=== PATIENT | female | born 1995 | race Caucasian/White ===

== ENCOUNTER 2024-01-29 14:16 | Outpatient (AMB) | payer BC, SELFPAY ==
--- NOTE | 2024-01-29 14:17 | AM.OFFWIN_ITS ---
Intake Vital Signs 01/29/24 14:18 Height 5 ft 1 in Weight 289 lb BMI 54.6 BP 110/90 H Blood Pressure Location Lt brachial Position Sitting Pulse 99 Pulse Source Pulse Oximeter Temp 98.6 F Temp Source Temporal Artery Scan Pulse Oximetry (%) 97 Oxygen Delivery Method Room Air Intake Visit Reasons: EP sore throat sinus congestion (lobby) Intake Note: pt is here today for sore throat sinus congestion started yestreday Patient Tobacco Use Status: Never used Tobacco Allergies No Known Allergies Allergy (Verified 01/29/24 14:21) Do you need a note to return to daycare/school/sports/work: No HPI HPI Comments History of Present Illness Details 28 y/o female patient who presents to [facility] in clinic with c/o chills, Sinus pressure and Sore-throat that started yesterday. She has not taken any OTC medications. Denies any recent Sick contacts. PFSH Social History Patient Tobacco Use Status: Never used Tobacco Review of Systems Const All systems reviewed & are unremarkable except as noted in HPI and below Physical Exam Vital Signs: Last Vital Signs Temp 98.6 F 01/29/24 14:18 Pulse 99 01/29/24 14:18 BP 110/90 H 01/29/24 14:18 Pulse Ox 97 01/29/24 14:18 Oxygen Delivery Method Room Air 01/29/24 14:18 BMI result Body Mass Index 54.6 Const General: comfortable and no acute distress Nutritional Appearance: obese morbidly obese Orientation/consciousness: patient oriented x3 HEENT Head: Yes normocephalic Ears: external ears normal and TM's normal bilaterally General nose exam: Abnormal mucous membranes and turbinates present boggy bilateral and erythematous bilateral and Nasal discharge present mucoid Face and sinus: Yes sinus tenderness Mouth: Abnormal oral and palatal mucosa present erythematous and white patches Throat: Yes uvula midline and Yes abnormal tonsil (Swollen +3 ) Resp Effort & Inspection: normal respiratory effort and able to speak in complete sentences Auscultation: clear to auscultation bilaterally, no crackles, no rales, no rhonchi and no wheezes Cardio Rate: regular rate Rhythm: regular rhythm Neuro General: patient oriented x3, gait normal and moves all extremities Psych Speech and movement: Normal speech and movement present Results AMB Rapid Strep AMB Rapid Strep Negative Last Edit by Marisa aRzo CMA on 01/29/24 14 :30 Results Reviewed Results Reviewed: Laboratory Last Values Strep Scn Rapid Clinic Negative 01/29/24 14:30 Assessment & Plan Assessment & Plan (1) Acute pharyngitis: Code(s): J02.9 - Acute pharyngitis, unspecified Qualifiers: Pharyngitis/tonsillitis etiology: unspecified etiology Qualified Code(s): J02.9 - Acute pharyngitis, unspecified Plan: - Rest and hydrate well with warm fluids with Honey. - Acetaminophen for pain relief - SARs - Take medications as directed. Orders: Orders AMB Rapid Strep Screen Today Z13.9 - Encounter for screening, unspecified SARS-CoV2/FLU/RSV Today J02.9 - Acute pharyngitis, unspecified Medications: New penicillin V potassium 500 mg PO BID 10 days 20 tabs 0RF J02.9 - Acute pharyngitis, unspecified prednisone 20 mg PO DAILY 5 days 5 tabs 0RF J02.9 - Acute pharyngitis, unspecified acetaminophen 1,000 mg (2 x 500 mg) PO Q6H PRN 30 caps 0RF pain (scale score 7- 10) J02.9 - Acute pharyngitis, unspecified Coding Level of Care Code Est Pt Level 3 (11772) Diagnoses Acute pharyngitis, unspecified etiology J02.9 Pharyngitis/tonsillitis etiology: unspecified etiology Time Spent (min) 15
[2024-01-29 14:18] VITALS: BP 110/90; PULSE 99; TEMP 37; O2SAT 97; BMI 54.6
== END 2024-01-29 15:25 | disposition home or self-care (01) ==
PROVIDERS: PCP Nurse Practitioner Adult Health; Visit Provider Nurse Practitioner Family
DX: J02.9 Acute pharyngitis, unspecified (principal); Z13.9 Encounter for screening, unspecified
CPT/HCPCS: 87880; 99213

== ENCOUNTER 2024-01-29 14:32 | Outpatient (REF) | payer BC, SELFPAY ==
[2024-01-29 18:05] LABS: Influenza A PCR NEGATIVE (Negative); Influenza B PCR NEGATIVE (Negative); Resp Syncy Virus RNA Qual PCR NEGATIVE (Negative); SARS COV2 PCR INHOUSE NEGATIVE (Negative)
== END 2024-01-29 14:33 | disposition home or self-care (01) ==
LOC: HO.LAB 14:32
PROVIDERS: Visit Provider Nurse Practitioner Family
DX: J02.9 Acute pharyngitis, unspecified (principal)
CPT/HCPCS: 0241U

== ENCOUNTER 2025-02-19 12:48 | Emergency (ER) | payer BC, SELFPAY ==
[2025-02-19 13:03] VITALS: BP 157/94; PULSE 72; RESP 18; TEMP 36.3; O2SAT 97; BMI 54.7
--- NOTE | 2025-02-19 13:05 | ED_ITS ---
HPI - General Adult General Chief complaint: Headache Stated complaint: migraine Time Seen by Provider: 02/19/25 13:28 Source: patient and old records reviewed Mode of arrival: ambulatory Limitations: no limitations History of Present Illness ED Provider: MOE FERNANDEZ narrative: 29 yo female with PMH of migraines and family history of migraines here with c/o R sided headache starting yesterday when she woke up no no trauma or fevers. Yesterday she tried excedrin and no relief. Today she tried tylenol but vomited it up. She has no neck pain. She has no numbness or weakness. She denies any recent URI. She states she has never had to come to the hospital before for this. complaint: migraine Onset (ago): day(s) (yesterday ) Location: head Radiation: non-radiation Severity: severe Quality: aching Pain Consistency: constant Relieving factors: none Exacerbating factors: other (light, noise) Associated symptoms: nausea/vomiting Treatments prior to arrival: other Related Data Home Medications ?Medication ?Instructions ?Recorded ?Confirmed fluticasone propionate 110 2 puff inhalation BID 01/29/24 mcg/actuation HFA aerosol inhaler levalbuterol tartrate 45 2 puff inhalation Q4H 01/29/24 mcg/actuation aerosol inhaler montelukast 10 mg tablet 10 mg PO DAILY 01/29/24 sertraline 50 mg tablet 50 mg PO DAILY 01/29/24 Previous Rx's ?Medication ?Instructions ?Recorded acetaminophen 500 mg capsule 1,000 mg (2 x 500 mg) PO Q6H PRN 01/29/24 pain (scale score 7-10) #30 caps penicillin V potassium 500 mg 500 mg PO BID 10 days #20 tabs 01/29/24 tablet prednisone 20 mg tablet 20 mg PO DAILY 5 days #5 tabs 01/29/24 cyclobenzaprine 10 mg tablet 10 mg PO TID PRN muscle spasm #20 02/19/25 tabs ondansetron 4 mg disintegrating 4 mg PO Q8H PRN nausea and 02/19/25 tablet vomiting #20 tabs Allergies Allergy/AdvReac Type Severity Reaction Status Date / Time No Known Allergies Allergy Verified 02/19/25 13:07 Review of Systems Review of Systems: Constitutional : No Fever, No Chills, No Fatigue ENT/Mouth : No sore throat, No Rhinorrhea Eyes: No Eye Pain, No Swelling, No Redness Cardiovascular : No Chest Pain, No SOB, No Dyspnea on Exertion Respiratory : No Cough, No Sputum Gastrointestinal : pos Nausea, No Vomiting, No Diarrhea, No abdominal Pain Genitourinary : No Dysuria, No Urinary Frequency, No Hematuria, Musculoskeletal : No joint pain, No Myalgias, No Joint Swelling Skin : No Skin Lesions, No rash Neuro : No Weakness, No Numbness, No Dizziness, positive Headache Psych : No Anxiety/Panic, No Depression Heme/Lymph: No Bruising, No Bleeding,No Lymphadenopathy Endocrine : No Polyuria, No Polydipsia All other systems reviewed and are negative PMFSH Past Medical History Attestation statement: The following information was validated with the patient. Source: old records reviewed Medical History (Updated 02/19/25 @ 13:47 by Julia Ryan DO) Migraine Social History Social History Patient Tobacco Use Status: Never used Tobacco Physical Exam ED Vital Signs: Vital Signs - 24 hr 02/19/25 13:03 Temperature 97.4 F Pulse Rate 72 Respiratory Rate 18 Blood Pressure 157/94 H Pulse Oximetry 97 Oxygen Delivery Method Room Air BMI result Body Mass Index 54.7 Appearance: Alert. Oriented X3. No acute distress. Eyes: Pupils equal, round and reactive to light. ENT: Pharynx normal. Neck: Normal inspection. Neck supple. no meningeal signs CVS: Normal heart rate and rhythm. Pulses normal. Respiratory: No respiratory distress. Breath sounds normal. Abdomen: Soft and non-tender. Skin: Skin warm and dry. Normal skin color. Normal skin turgor. Extremities: No lower extremity edema. Neuro: Oriented X 3. No motor deficit. No sensory deficit. CN2-12 intact. steady gait Course Course Course Narrative: This is a rapid medical exam performed by Susannah Krishna NP: Additional HPI, ROS, PE not included below will be deferred to primary provider. Patient is a 29-year-old female with history of migraines presenting with complaint of migraine for the past 4 hours, associated photophobia, nausea and vomiting. Took excedrin yesterday and Tylenol this am. Medical Decision Making Medical Decision Making MDM Narrative: 29 yo female with PMH of migraines does not follow up with neuro or PCP but has strong fam hx she reports gradual onset headache no trauma and no fevers to suggest SAH or CYTOGENETIC TECHNICIAN infection. At this time will start her on IV medications - toradol, reglan, benadryl. If she is feeling better will DC home with supportive medications. Differential Diagnosis Differential Diagnoses: The differential diagnosis associated with the presentation includes migraine, tension headache gradual onset and worsening doubt SAH no fevers or meningeal signs to suggest CYTOGENETIC TECHNICIAN infection Admission/Observation Consideration of admission/observation: Escalation of care including admission/observation considered feels much better stable for DC Independent Historian Clinical information obtained from an independent historian. History obtained from or confirmed by: Spouse Prescription Management I considered prescription management with: Other Discharge Plan Discharge Clinical Impression: Migraine Qualifiers: Migraine type: unspecified Status migrainosus presence: without status migrainosus Intractability: not intractable Qualified Code(s): G43.909 - Migraine, unspecified, not intractable, without status migrainosus Instructions: Migraine Headache (ED) Additional Instructions: rest and stay hydrated return for worsening pain, fevers, unable to eat or drink, confusion or any other concerns Prescriptions: New cyclobenzaprine 10 mg tablet 10 mg PO TID PRN (Reason: muscle spasm) Qty: 20 0RF ondansetron 4 mg tablet,disintegrating 4 mg PO Q8H PRN (Reason: nausea and vomiting) Qty: 20 0RF No Action sertraline 50 mg tablet 50 mg PO DAILY montelukast 10 mg tablet 10 mg PO DAILY levalbuterol tartrate 45 mcg/actuation HFA aerosol inhaler 2 puff inhalation Q4H fluticasone propionate 110 mcg/actuation HFA aerosol inhaler 2 puff inhalation BID penicillin V potassium 500 mg tablet 500 mg PO BID 10 Days Qty: 20 0RF acetaminophen 500 mg capsule 1,000 mg PO Q6H PRN (Reason: pain (scale score 7-10)) Qty: 30 0RF prednisone 20 mg tablet 20 mg PO DAILY 5 Days Qty: 5 0RF Stand Alone Forms: Work/School Release Print Language: Maltese
[2025-02-19] MEDS: Ketorolac Tromethamine 15 MG/ML VIAL IVPUSH (13:42)
[2025-02-19] MEDS: diphenhydrAMINE HCL 50 MG/ML VIAL 25 MG IVPUSH (13:42)
[2025-02-19] MEDS: Lactated Ringers 1,000 ML 999 ML IV (13:42)
[2025-02-19] MEDS: Metoclopramide HCl 10 MG/2 ML VIAL IVPUSH (13:42)
--- OUTSIDE RECORDS SUMMARY | 2025-02-19 13:51 | XMS_ITS | Encounter Summary ---
Author Organization [facility] Address [address] [place] [phone] Phone Care Team Providers Care Immigration Manager Name Role Phone Ca Hosue MD Primary Care Provider Unava ilable Encounter Details Date Type Department Care Team (Late st Contact Info) Description 03/28/2010 Documentation [facility] [address] [place] [address] Family Medicine, Physician [address] [place] [address] Social History Tobacco Use Types Packs/Day Years Used Date Smoking Tobacco: Never Assessed Comments Unknown Sex and Gender Information Value Date Recorded Sex Assigned at Not on file Legal Sex Female 4:55 PM EDT Gender Identity Not on file Sexual Orientation Not on file documented as of this encounter Plan of Treatment Not on file documented as of this encounter Visit Diagnoses Not on filedocumented in this encounter Care Teams Immigration Manager Relationship Specialty Start Date End Date Ca House MD PCP - General 06/20/17 documented as of this encounter
--- OUTSIDE RECORDS SUMMARY | 2025-02-19 13:51 | XMS_ITS | Encounter Summary ---
Author Organization [facility] Address [address] [place] [phone] Phone Care Team Providers Care Body And Fender Worker Name Role Phone Ca House MD Primary Care Provider Unava ilable Encounter Details Date Type Department Care Team (Late st Contact Info) Description 01/10/2010 Documentation [facility] [address] [place] [address] Family Medicine, Physician [address] [place] [address] Social History Tobacco Use Types Packs/Day Years [...] on filedocumented in this encounter Care Teams Body And Fender Worker Relationship Specialty Start Date End Date Ca House MD PCP - General 06/20/17 documented as of this encounter
--- OUTSIDE RECORDS SUMMARY | 2025-02-19 13:51 | XMS_ITS | Encounter Summary ---
Author Organization [facility] Address [address] [place] [phone] Phone Care Team Providers Care Branch Retail Executive Name Role Phone Ca House MD Primary Care Provider Unava ilable Encounter Details Date Type Department Care Team (Late st Contact Info) Description 06/26/2017 Conversion Encounter [facility] - [address] [address] Social History Tobacco Use Types Packs/Day Years Used Date Smoking Tobacco: Never Comments:Never smoker Comments Unknown Sex and Gender Information Value Date Recorded Sex Assigned at Not on file Legal Sex Female 4:55 PM EDT Gender Identity Not on file Sexual Orientation Not on file documented as of this encounter Plan of Treatment Not on file documented as of this encounter Visit Diagnoses Not on filedocumented in this encounter Care Teams Branch Retail Executive Relationship Specialty Start Date End Date Ca House MD PCP - General 06/20/17 documented as of this encounter
--- OUTSIDE RECORDS SUMMARY | 2025-02-19 13:51 | XMS_ITS | Clinical Summary ---
Author Organization [facility] Address [address] [place] [phone] Phone Care Team Providers Care Principal Developer Name Role Phone Ca House MD Primary Care Provider Jenni iyer Immunizations Immunization Administration Dates Next Due DTP 1994,1994 DTaP 5 06/07/1999,02/08/1996,1994 HPV, Quadrivalent 08/05/2013 Hep B, ped/adol 03/05/1995,1994,1994 Hib (PRP-T) 09/03/1995, 5,1994, 994 IPV 1994 Influenza Split 08/05/2013, 2,08/15/2011, 010 Influenza, injectable, quadrivalent 11/17/2014 Influenza, injectable, trivalent 08/04/2009,09/11,11/16/2007 MMR 06/21/1998,09/03/1995 Meningococcal Conj (Menactra) MCV4P 02/28/2010 OPV 06/07/1999,1994,1994 Tdap 05/28/2006 Varicella 02/28/2010,06/21/1998 Family History Relation Name Status Comments Brother Alive Brother: alive and well Father Alive Father: Alive a nd well Mother Alive Mother: Alive a nd well Other No family histo ry of Migraines, Family history of Diabetes mellitus, Family history of Sudden /NC under age 55, No family history of Asthma, No family history of Cancer, No family history of Seizure disorder, No family history of CVA (Stroke), No family history of Developmental dislocation of hip, Family history of Obesity, No family history of ADD/ADHD, No family history of Strabismus, No family history of Deafness, No family history of Hyperlipidemia Paternal Grandmother Paterna l grandmother: D M Type II, Diabetes mellitus Sister Alive Sister: Alive a nd well Social History Tobacco Use Types Packs/Day Years Used Date Smoking Tobacco: Never Comments:Never smoker Comments Unknown Sex and Gender Information Value Date Recorded Sex Assigned at Not on file Legal Sex Female 4:55 PM EDT Gender Identity Not on file Sexual Orientation Not on file Last Filed Vital Signs Vital Sign Reading Time Taken Comments Blood Pressure 112/64 11/17/2014 12:00 AM EST Pulse 90 01/24/2014 12:00 AM EDT Temperature 36.7 ??C (98.1 ??F) 11/17/2014 12:[address] Respiratory Rate - - Oxygen Saturation 98% 11/17/2014 12:00 AM EST Inhaled Oxygen Concentration - - Weight 102 kg (225 lb 6.4 oz) 11/17/2014 12:00 A M EST Height 153.2 cm (5' 0.3 ) 11/17/2014 12:00 AM ES T Body Mass Index 43.58 11/17/2014 12:00 AM EST Plan of Treatment Health Maintenance Due Date Last Done Comments HPV Vaccines (2 - 3-dose series) 09/02/2013 08/05/2013 DTaP,Tdap,and Td Vaccines (7 - Td or Tdap) 05/28/2016 05/28/2006, 06/07/1999, 02/08/1996, Additional history exists Influenza Vaccines (#1) 2024 11/17/19 15, 08/05/2013, 08/21/2012, Additional history exists COVID-19 Vaccine ( season) 2024 Hepatitis B Vaccines Completed 03/05/1995, 1994, 1994 HIB Vaccines Completed 09/03/1995, 11/1994, 1994, Additional history exists MMR Vaccines Completed 06/21/1998, 09/03/1995 IPV Vaccines Completed 06/07/1999, 11/1994, 1994, Additional history exists Meningococcal Vaccine Aged Out 02/28/2010 No jordin duncan eligible based on patient's age to complete this topic Varicella Vaccines Completed 02/28/2010, 06/21/1998 Hepatitis A Vaccines Aged Out No long er eligible based on patient's age to complete this topic Men B Vaccine Aged Out No longer elig ible based on patient's age to complete this topic Pneumococcal Vaccine Aged Out No long er eligible based on patient's age to complete this topic Procedures * Due to [place] [employer] law, this organization might not be sharing sensitive test results. Procedure Name Priority Date/Time Associated Diagnosis Comments CHLAMYDIA AND GONORRHEA, AMPLIFIED Routine 01/25/2014 1:30 PM EDT from Last 3 Months or Most Recently Relevant to Health Maintenance Results * Due to [place] [employer] law, this organization might not be sharing sensitive test results. * Chlamydia and Gonorrhoea, Amplified (01/25/2014 1:30 PM EDT) [facility] URINE GC AMP PROBE NEGATIVE F [facility] Comment: NO NEISSERIA GONORRHOEAE RNA DETECTED IN THIS PATIENT'S SAMPLE. (REFERENCE RANGE/NORMAL VALUE: NOT DETECTED) NOTE: This test uses divinity professor-mediated amplification method to detect rRNA from C.Trachomatis and N.Gonorrhoeae. A negative result does not preclude infection. In the case of a negative urine result, testing of an endocervical(female) or urethral(male) specimen is recommended if there is high clinical suspicion of infection. The performance characteristics of this test have not been evaluated in children. The Aptima Combo2 assay is not intended for the evaluation of suspected sexual abuse or for other medico-legal indications. The ordering provider should assess if the patient had consensual sex without risk of sexual abuse. Consult the [facility] if needed. Contact phone number . Therapeutic failure or success cannot be determined with the Aptima Combo2 assay since nucleic acid may persist following appropriate antimicrobial therapy. The Centers for Disease Control and Prevention (CDC) recommends confirmatory retesting using culture or a different nucleic acid amplification test when positive results occur, if indicated. Testing performed or reported by [facility], a Service of [facility], [address] [place] [id number] [address] Bryan, Quality Rep URINE CHLAMYDIA AMP PROBE NEGATIVE [facility] Comment: NO CHLAMYDIA TRACHOMATIS RNA DETECTED IN THIS PATIENT'S SAMPLE. (REFERENCE RANGE/NORMAL VALUE: NOT DETECTED) 01/25/2014 1:30 PM EDT Narrative [facility] - 01/25/2014 1:30 PM EDT URINE CHLAMYDIA GC AMP PROBE us Ca House MD LAB MICROBIOLOGY - GENERAL O RDERABLES Final Result [facility] [address] [place] [address], [place] from Last 3 Months or Most Recently Relevant to Health Maintenance Care Teams Principal Developer Relationship Specialty Start Date End Date Ca House MD PCP - General 06/20/17
[2025-02-19 14:41] VITALS: BP 157/94; PULSE 72; RESP 18; TEMP 36.3; O2SAT 97
== END 2025-02-19 14:42 | disposition home or self-care (01) ==
PROVIDERS: Emergency Provider Emergency Medicine; PCP Nurse Practitioner Adult Health
DX: G43.909 Migraine, unspecified, not intractable, without status migrainosus (principal); R11.2 Nausea with vomiting, unspecified; R60.0 Localized edema; H53.143 Visual discomfort, bilateral; Z79.899 Other long term (current) drug therapy
CPT/HCPCS: 96361; 96374; 96375; 99284; J1200; J1885; J2765; J7120